=== PATIENT | male | born 2005 | race African-American/Black ===

== ENCOUNTER 2025-05-24 15:34 | Emergency (ER) | payer MEDICAID ==
[~2025-05-24] VITALS: Ht 195.6 cm; Wt 118.0 kg
[2025-05-24 15:36] VITALS: O2SAT 100
[2025-05-24 15:40] VITALS: BP 134/89; PULSE 87; RESP 18; TEMP 37; O2SAT 100
[2025-05-24] MEDS ORDERED: IBUP-1455 MT (15:57)
[2025-05-24] MEDS ORDERED: CYCL10TA21 MT (15:57)
== END 2025-05-24 16:05 | disposition home or self-care (01) ==
LOC: ER 15:34
DX: M54.50 Low back pain, unspecified (principal)
CPT/HCPCS: 99283